=== PATIENT | female | born 1990 ===

== ENCOUNTER 2017-09-11 04:04 | Emergency (ER) | payer SELFPAY ==
[2017-09-11 04:40] VITALS: BP 120/68; PULSE 88; RESP 18; TEMP 98.2; O2SAT 99
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
== END 2017-09-11 04:53 | disposition home or self-care (01) ==
LOC: ED 04:04
DX: F10.10 Alcohol abuse, uncomplicated (principal); Y90.9 Presence of alcohol in blood, level not specified